=== PATIENT | male | born 1975 | race Caucasian/White ===

== ENCOUNTER 2018-10-03 15:04 | Day surgery (SDC) | payer OTHER, MEDICAID ==
[~2018-10-03 15:04] MED LIST: EPHEDrine SULFATE 50 MG/5 ML SYG; PROPOFOL 200 MG INJ
[2018-10-03] MEDS ORDERED: BUPIVACAINE 0.5% (SDV) 30 ML INJ (16:08)
[2018-10-03] MEDS ORDERED: LIDOCAINE 1% (MPF) 30 ML INJ (16:08)
[2018-10-03] MEDS ORDERED: LABETALOL HCL 20MG INJ IV (17:30)
[2018-10-03] MEDS ORDERED: MEPERIDINE 25 MG INJ IV (17:30)
[2018-10-03] MEDS ORDERED: EPHEDrine SULFATE 50 MG/5 ML SYG IV (17:30)
[2018-10-03] MEDS ORDERED: FENTAnyl 50 MCG/ML VIAL IV ×3 (17:30)
[2018-10-03] MEDS ORDERED: DIPHENHYDRAMINE 50 MG INJ IV (17:30)
[2018-10-03] MEDS ORDERED: HYDROmorphONE 1 MG/5 ML IV SYRINGE IV ×3 (17:30)
[2018-10-03] MEDS ORDERED: ONDANSETRON 4 MG INJ IV (17:30)
[2018-10-03] MEDS ORDERED: hydrALAzine 20 MG INJ IV (17:30)
[2018-10-03] MEDS ORDERED: OXYCODONE/ACETAMINOPHEN (5/325) TAB PO (17:30)
[2018-10-03] MEDS ORDERED: PROCHLORPERAZINE 10 MG INJ IV (17:30)
[2018-10-03] MEDS ORDERED: LIDOCAINE 2% (SDV) 5 ML INJ (18:07)
[2018-10-03] MEDS ORDERED: PROPOFOL 20 ML (18:07)
[2018-10-03] MEDS ORDERED: MIDAZOLAM 1 MG/ML 2 ML INJ (18:08)
[2018-10-03] MEDS ORDERED: ROPIVACAINE 0.5 % 30 ML VIAL (18:08)
[2018-10-03] MEDS ORDERED: CEFAZOLIN 1 GM INJ (18:23)
[2018-10-03] MEDS: POLYMYXIN/BACITRACIN 1L IRRIG (18:29)
[2018-10-03] MEDS ORDERED: FAMOTIDINE 20 MG INJ (18:30)
[2018-10-03] MEDS ORDERED: ONDANSETRON 4 MG INJ (18:30)
[2018-10-03] MEDS ORDERED: DEXAMETHASONE 4 MG/ML 5 ML INJ (18:30)
[2018-10-03] MEDS ORDERED: FENTAnyl 50 MCG/ML VIAL (18:30)
== END 2018-10-03 21:04 | disposition home or self-care (01) ==
LOC: SDS 15:04
DX: S52.571D Other intraarticular fracture of lower end of right radius, subsequent encounter for closed fracture with routine healing (principal); W19.XXXD Unspecified fall, subsequent encounter; G56.01 Carpal tunnel syndrome, right upper limb
CPT/HCPCS: 64721; 73110-RT